=== PATIENT | female | born 1970 | race Caucasian/White ===

== ENCOUNTER 2020-02-07 07:43 | Day surgery (SDC) | payer OTHER ==
[~2020-02-07] VITALS: Ht 149.9 cm; Wt 86.1 kg
[~2020-02-07 07:43] MED LIST: ARIP10 PO; Adderall 20 MG20 MG PO; CLON2 PO; ESCI20 PO; EUTHYROX50 MCG PO; Lamictal150 MG PO
[2020-02-07] MEDS ORDERED: ATOR10 (08:22)
== END 2020-02-07 10:44 | disposition home or self-care (01) ==
LOC: ORSCSDS 07:43
PROVIDERS: Orthopaedic Surgery
PROC: 01X40Z4 Transfer Ulnar Nerve to Ulnar Nerve, Open Approach (ICD-10-PCS; principal; 2020-02-07 09:00)
DX: G56.22 Lesion of ulnar nerve, left upper limb (principal); E78.5 Hyperlipidemia, unspecified; Z87.891 Personal history of nicotine dependence; E11.9 Type 2 diabetes mellitus without complications; E03.9 Hypothyroidism, unspecified; E66.01 Morbid (severe) obesity due to excess calories; Z68.37 Body mass index [BMI] 37.0-37.9, adult; F31.9 Bipolar disorder, unspecified; Z79.899 Other long term (current) drug therapy
CPT/HCPCS: J0690; J1100; J1885; J2250; J2405; J2704; J2795; J3010; J7120

== ENCOUNTER 2020-08-04 08:01 | Day surgery (SDC) | payer OTHER ==
[~2020-08-04] VITALS: Ht 149.9 cm; Wt 82.3 kg
[~2020-08-04 08:01] MED LIST changes: +ATOR10; +DEXT15ER PO; +LAMO100 PO; +VRAYLAR3 MG PO
== END 2020-08-04 10:37 | disposition home or self-care (01) ==
LOC: ORSCSDS 08:01
PROVIDERS: Student in an Organized Health Care Education/Training Program
PROC: 0DBM8ZX Excision of Descending Colon, Via Natural or Artificial Opening Endoscopic, Diagnostic (ICD-10-PCS; principal; 2020-08-04 09:45)
PROC: 0DBK8ZX Excision of Ascending Colon, Via Natural or Artificial Opening Endoscopic, Diagnostic (ICD-10-PCS; principal; 2020-08-04 09:45)
PROC: 0DBN8ZX Excision of Sigmoid Colon, Via Natural or Artificial Opening Endoscopic, Diagnostic (ICD-10-PCS; principal; 2020-08-04 09:45)
DX: Z12.11 Encounter for screening for malignant neoplasm of colon (principal); D12.5 Benign neoplasm of sigmoid colon; K57.30 Diverticulosis of large intestine without perforation or abscess without bleeding; E03.9 Hypothyroidism, unspecified; E78.5 Hyperlipidemia, unspecified; F31.9 Bipolar disorder, unspecified; Z79.899 Other long term (current) drug therapy
CPT/HCPCS: 88305; J2704; J7120

== ENCOUNTER 2021-02-02 11:35 | Emergency (ER) | payer OTHER ==
[~2021-02-02] VITALS: Ht 149.9 cm; Wt 80.3 kg
[2021-02-02] MEDS ORDERED: Robaxin750 MG PO (12:39)
== END 2021-02-02 13:48 | disposition home or self-care (01) ==
LOC: ER 11:35
DX: S09.90XA Unspecified injury of head, initial encounter (principal); M54.50 Low back pain, unspecified; V89.2XXA Person injured in unspecified motor-vehicle accident, traffic, initial encounter
CPT/HCPCS: 71046; 99284-25

== ENCOUNTER 2024-03-02 13:57 | Day surgery (SDC) | payer OTHER ==
[~2024-03-02] VITALS: Ht 149.9 cm; Wt 83.0 kg
[~2024-03-02 13:57] MED LIST changes: +Atropine Sulfate 0.1 MG/ML 10ML SYR ONE; +Glycopyrrolate 0.2 MG/ML 1MLVIAL ONE; +Lidocaine 2% 5 ML SDV ONE; +Lidocaine HCl/Pf 1% 5 ML VIAL ONE; +Methylene Blue 1% 100 MG/10 ML VIAL ONE; +Ondansetron HCl 2 MG / ML 2ML Vial ONE; +Robaxin750 MG PO; +ePHEDrine Sulfate 50 MG/ML 1ML Injection ONE
[2024-03-02] MEDS ORDERED: AUVELITY ER 451 EACH (14:23)
[2024-03-02] MEDS ORDERED: DEXTROAMPHETAMI (14:24)
[2024-03-02] MEDS ORDERED: ESTRADIOL (14:25)
[2024-03-02] MEDS ORDERED: Lactated Ringer's 1,000 ML IV ONE ×2 (15:00→15:18)
[2024-03-02] MEDS ORDERED: propofoL 50 ML IV ONE (15:18)
[2024-03-02 16:36] VITALS: BP 117/89
== END 2024-03-02 16:28 | disposition home or self-care (01) ==
LOC: ORSCSDS 13:57
PROVIDERS: Internal Medicine Gastroenterology
PROC: 0DJD8ZZ Inspection of Lower Intestinal Tract, Via Natural or Artificial Opening Endoscopic (ICD-10-PCS; principal; 2024-03-02 15:15)
DX: Z12.11 Encounter for screening for malignant neoplasm of colon (principal); Z86.0101 Personal history of adenomatous and serrated colon polyps; F31.9 Bipolar disorder, unspecified; E03.9 Hypothyroidism, unspecified; E78.5 Hyperlipidemia, unspecified; F41.9 Anxiety disorder, unspecified; F43.10 Post-traumatic stress disorder, unspecified; Z79.899 Other long term (current) drug therapy
CPT/HCPCS: J0461; J2003; J2405; J2704; J7120; Q9968

== ENCOUNTER 2024-10-15 08:47 | Day surgery (SDC) | payer OTHER ==
[~2024-10-15] VITALS: Ht 152.4 cm; Wt 85.9 kg
[~2024-10-15 08:47] MED LIST changes: +AUVELITY ER 451 EACH; -Atropine Sulfate 0.1 MG/ML 10ML SYR ONE; +DEXTROAMPHETAMI; +Dexamethasone Sod Phos 10 MG/ML 1ML VIAL ONE; +ESTRADIOL; +FentaNYL Citrate 50 MCG/ML 2 ML Injection ONE; -Glycopyrrolate 0.2 MG/ML 1MLVIAL ONE; -Lidocaine 2% 5 ML SDV ONE; -Lidocaine HCl/Pf 1% 5 ML VIAL ONE; -Methylene Blue 1% 100 MG/10 ML VIAL ONE; +Midazolam HCl 1MG / ML 2ML Vial ONE; +Rocuronium Bromide 10 MG/ML 5ML Injection IV ONE; -ePHEDrine Sulfate 50 MG/ML 1ML Injection ONE
[2024-10-15] MEDS ORDERED: Lidocaine HCl 4% 5 ML SDA ONE (09:10)
[2024-10-15] MEDS ORDERED: Ropivacaine 0.5% HCL/PF 5 MG/ML 30ML Vial ONE (09:10)
[2024-10-15] MEDS ORDERED: Seroquel Xr50 MG PO (09:15)
[2024-10-15] MEDS ORDERED: CeFAZolin Sodium 2,000 MG VIAL ONE (09:36)
--- NOTE | 2024-10-15 11:28 | NUR ---
10/15/24 1128 Lelia Rosario TIMEOUT DONE PIOR TO NERVE BLOCK WITH SYED CHRISTIE. PT TOLERATED BLOCK WELL. PT ON O2 MONITOR DURING BLOCK; SATS MAINTAINED GREATER THAN 98% DURING BLOCK.
[2024-10-15] MEDS ORDERED: Ketorolac Tromethamine 30mg Vial ONE (11:55)
[2024-10-15] MEDS ORDERED: Sugammadex Sodium 200 MG/2ML SDV (100 MG/ML) ONE (11:56)
--- NOTE | 2024-10-15 12:12 | NUR ---
10/15/24 1212 Dominique Carr 1MG OF EPI ADDED TO FIRST BAG OF LR USED FOR JOINT IRRIGATION.
[2024-10-15 13:47] VITALS: BP 105/73
--- NOTE | 2024-10-15 14:11 | NUR ---
10/15/24 1411 JUD PICHARDO AT BEDSIDE
== END 2024-10-15 14:59 | disposition home or self-care (01) ==
LOC: ORSCSDS 08:47
PROVIDERS: Orthopaedic Surgery
PROC: 0LS34ZZ Reposition Right Upper Arm Tendon, Percutaneous Endoscopic Approach (ICD-10-PCS; principal; 2024-10-15 10:45)
PROC: 0LM14ZZ Reattachment of Right Shoulder Tendon, Percutaneous Endoscopic Approach (ICD-10-PCS; principal; 2024-10-15 10:45)
PROC: 0RNJ4ZZ Release Right Shoulder Joint, Percutaneous Endoscopic Approach (ICD-10-PCS; principal; 2024-10-15 10:45)
DX: M75.121 Complete rotator cuff tear or rupture of right shoulder, not specified as traumatic (principal); M75.41 Impingement syndrome of right shoulder; M75.21 Bicipital tendinitis, right shoulder; E78.5 Hyperlipidemia, unspecified; J45.909 Unspecified asthma, uncomplicated; E03.9 Hypothyroidism, unspecified; F43.10 Post-traumatic stress disorder, unspecified; F31.9 Bipolar disorder, unspecified; F41.9 Anxiety disorder, unspecified; E66.9 Obesity, unspecified; Z68.36 Body mass index [BMI] 36.0-36.9, adult; Z79.899 Other long term (current) drug therapy
CPT/HCPCS: C1713; J0166; J0690; J1100; J1885; J2003; J2250; J2405; J2704; J2795; J3010